=== PATIENT | male | born 1945 | race Caucasian/White ===

== ENCOUNTER → 2020-03-26 | Outpatient (CLI) | payer MEDICARE, BC ==
[2020-03-26 13:17] LABS: Urine Creatinine 110.1 mg/dL
[2020-03-26 14:30] LABS: Hemoglobin A1C 8.2 % (4.0-6.0)
[2020-03-26 16:10] LABS: African American GFR (CKD) 75.2 (60.0-200.0); Albumin 4.3 g/dL (3.80-4.90); Albumin/Globulin Ratio 1.79 (1.60-3.17); BUN/Creat Ratio 19.09 Ratio (12.00-20.00); Calcium 9.2 mg/dL (8.7-10.3); Chol/HDL Ratio 3.79; Globulin 2.4 g/dL (1.6-3.3); Non-African American GFR(CKD) 64.9 (60.0-200.0); Potassium 4.9 mmol/L (3.5-5.5); Total Bilirubin 0.5 mg/dL (0.2-1.2); Total Protein 6.7 g/dL (6.2-8.2)
== END | disposition home or self-care (01) ==
LOC: LABWHC1 07:17
PROVIDERS: ATTEND Internal Medicine Endocrinology, Diabetes & Metabolism
DX: E11.65 Type 2 diabetes mellitus with hyperglycemia (principal)
CPT/HCPCS: 36415; 80053; 80061; 82043; 82570; 83036; 84443

== ENCOUNTER 2020-09-15 06:36 | Day surgery (SDC) | payer MEDICARE, BC ==
[2020-09-07 16:32] VITALS: BMI 27.9
[~2020-09-15 06:36] MED LIST: LACTATED RINGERS 1,000 ML IV SCH
[2020-09-15] MEDS ORDERED: LACTATED RINGERS 1,000 ML IV ONE (07:10)
[2020-09-15 07:19] LABS: Glucose,Whole Blood 139 mg/dL (75-99)
[2020-09-15 07:26] VITALS: TEMP 96
[2020-09-15] MEDS ORDERED: PROPOFOL 10 MG/ML 20 ML VIAL IV ONE (07:57)
--- NOTE | 2020-09-15 07:59 | P.GSHP ---
History of Present Illness H&P Date: 09/15/20 CHIEF COMPLAINT: Colon screen HISTORY OF PRESENT ILLNESS: The patient is a 74-year-old male who presents for colon screen. Lower endoscopy was offered for further evaluation and management. PAST MEDICAL HISTORY: Please see list. PAST SURGICAL HISTORY: Please see list. MEDICATIONS: Please see list. ALLERGIES: Please see list. SOCIAL HISTORY: No illicit drug use FAMILY HISTORY: No reports of Crohn disease or ulcerative colitis. REVIEW OF ORGAN SYSTEMS: CONSTITUTIONAL: No reports of fevers or chills. PHYSICAL EXAM: VITAL SIGNS: Stable GENERAL: Well-developed pleasant in no acute distress. HEENT: No scleral icterus. Extraocular movements grossly intact. Moist buccal mucosa. NECK: Supple without lymphadenopathy. CHEST: Unlabored respirations. Equal bilateral excursions. CARDIOVASCULAR: Regular rate and rhythm. Distal 2+ pulses. ABDOMEN: Soft, nontender, nondistended. MUSCULOSKELETAL: No clubbing, cyanosis, or edema. ASSESSMENT: 1. Colon screen. PLAN: 1. Recommend proceeding with a lower endoscopy Past Medical History Past Medical History: Cancer, Diabetes Mellitus, Hypertension, Thyroid Disorder Additional Past Medical History / Comment(s): hx colon cancer, Hx polyps History of Any Multi-Drug Resistant Organisms: None Reported Past Surgical History: Bowel Resection, Orthopedic Surgery Additional Past Surgical History / Comment(s): several colonoscopies, hemorrhoidectomy. ORIF bilsarai ankles 1986 Past Anesthesia/Blood Transfusion Reactions: Motion Sickness Smoking Status: Former smoker - Past Family History Father Family Medical History: Myocardial Infarction ([place]) Additional Family Medical History / Comment(s): AT AGE 44 FROM [place] Mother Family Medical History: No Reported History Medications and Allergies Home Medications Medication Instructions Recorded Confirmed Type Atorvastatin [Lipitor] 80 mg PO DAILY 08/26/14 09/15/20 History Levothyroxine Sodium [Synthroid] 100 mcg PO DAILY 08/26/14 09/15/20 History Ramipril 2.5 mg PO DAILY 08/26/14 09/15/20 History metFORMIN HCL [Glucophage] 850 mg PO BID 08/26/14 09/15/20 History Cholecalciferol [Vitamin D3 (25 2,000 unit PO DAILY 09/07/20 09/15/20 History Mcg = 1000 Iu)] Glucos Sul 2Kcl/MSM/Chond/C/Mn 1 each PO DAILY 09/07/20 09/15/20 History [Glucosamine Chondroitin Cap] Naproxen Sodium [Aleve] 220 - 440 mg PO Q12HR PRN 09/07/20 09/15/20 History sitaGLIPtin PHOSPHATE [Januvia] 100 mg PO DAILY 09/07/20 09/15/20 History Allergies Allergy/AdvReac Type Severity Reaction Status Date / Time No Known Allergies Allergy Verified 09/15/20 07:28 Surgical - Exam Vital Signs Temp Pulse BP Pulse Ox 96.0 F L 100 158/74 96 09/15/20 07:05 09/15/20 07:05 09/15/20 07:05 09/15/20 07:05 Results - Labs Abnormal Lab Results - Last 24 Hours (Table) 09/15/20 Range/Units 07:15 POC Glucose (mg/dL) 139 H (75-99) mg/dL
--- NOTE | 2020-09-15 08:27 | P.PCN ---
Date of Procedure: 09/15/20 Description of Procedure: PREOPERATIVE DIAGNOSIS: Personal history of malignant colon polyps POSTOPERATIVE DIAGNOSIS: Sigmoid colon polyp Severe pandiverticulosis Sigmoid partial colectomy Sigmoid diverticulosis Internal hemorrhoids, grade 2 OPERATION: Colonoscopy to the ileocecal valve and appendiceal orifice, cecum Colonoscopy with cold forceps biopsies SURGEON: Mahi Hope MD. ANESTHESIA: MAC. INDICATIONS: The patient is an 74-year-old male who presents personal history of colon poly ps. Last colonoscopy 3 years. Benefits and risks were described and informed consent was obtained. DESCRIPTION OF PROCEDURE: The patient had undergone Suprep. He had been brought into the operating room and laid in the left lateral decubitus position. After adequate intravenous sedation, the rectum was examined with 2% lidocaine jelly. The prostate was unremarkable. No external hemorrhoids were encountered. The rectal tone was within normal limits. No lesions were palpated in the rectal vault. An Olympus colonoscope was advanced until the cecum, ileocecal valve and appendiceal orifice were clearly viewed. The prep was fair. Severe sigmoid diverticulosis with pandiverticulosis was encountered. Evidence of partial colectomy along the sigmoid colon was identified with mild stricture. Evidence of previous tattoo along the ascending colon, proximal portion was also identified. A 4 mm hyperplastic polyp along the sigmoid colon was removed with cold forceps. No evidence of focal colitis was found. Retroflexion of the scope demonstrated grade 2 internal hemorrhoids without active bleeding or inflammation. The colon was desufflated. The patient had tolerated the procedure well. Withdrawal time was over 6 minutes. FINDINGS: Aronchick preparation quality scale 3 (1-5) Internal hemorrhoids, grade 2 No external hemorrhoids No arteriovenous malformations. Sigmoid diverticulosis with severe pandiverticulosis Mild sigmoid anastomotic stricture Removal of 1 polyp: - Cold forceps biopsy at 15 cm from the anal verge, 4 mm polyp, sigmoid colon No focal colitis. RECOMMENDATIONS: Repeat colonoscopy 3 years, 2022. Plan - Discharge Summary Discharge Rx Participant: No New Discharge Prescriptions: Continue Levothyroxine Sodium [Synthroid] 100 mcg PO DAILY Atorvastatin [Lipitor] 80 mg PO DAILY metFORMIN HCL [Glucophage] 850 mg PO BID Ramipril 2.5 mg PO DAILY Naproxen Sodium [Aleve] 220 - 440 mg PO Q12HR PRN PRN Reason: Pain Glucos Sul 2Kcl/MSM/Chond/C/Mn [Glucosamine Chondroitin Cap] 1 each PO DAILY Cholecalciferol [Vitamin D3 (25 Mcg = 1000 Iu)] 2,000 unit PO DAILY sitaGLIPtin PHOSPHATE [Januvia] 100 mg PO DAILY Discharge Medication List Atorvastatin [Lipitor] 80 mg PO DAILY 08/26/14 [History] Levothyroxine Sodium [Synthroid] 100 mcg PO DAILY 08/26/14 [History] Ramipril 2.5 mg PO DAILY 08/26/14 [History] metFORMIN HCL [Glucophage] 850 mg PO BID 08/26/14 [History] Cholecalciferol [Vitamin D3 (25 Mcg = 1000 Iu)] 2,000 unit PO DAILY 09/07/20 [History] Glucos Sul 2Kcl/MSM/Chond/C/Mn [Glucosamine Chondroitin Cap] 1 each PO DAILY 09/07/20 [History] Naproxen Sodium [Aleve] 220 - 440 mg PO Q12HR PRN 09/07/20 [History] sitaGLIPtin PHOSPHATE [Januvia] 100 mg PO DAILY 09/07/20 [History] Follow up Appointment(s)/Referral(s): Mahi Hope MD [STAFF PHYSICIAN] - As Needed Patient Instructions/Handouts: Diverticulosis Diet (GEN), Diverticulosis (DC), Colorectal Polyps (DC) Activity/Diet/Wound Care/Special Instructions: Repeat colonoscopy 3 years, 2022 Discharge Disposition: HOME SELF-CARE
[2020-09-15 08:43] VITALS: BP 143/83; PULSE 58; RESP 16
== END 2020-09-15 08:54 | disposition home or self-care (01) ==
LOC: ORWHC2ENDO 06:36
PROVIDERS: ATTEND Surgery Plastic and Reconstructive Surgery
DX: Z12.11 Encounter for screening for malignant neoplasm of colon (principal); K63.5 Polyp of colon; K57.30 Diverticulosis of large intestine without perforation or abscess without bleeding; Z85.038 Personal history of other malignant neoplasm of large intestine; Z86.010 Personal history of colon polyps; K64.1 Second degree hemorrhoids; I10 Essential (primary) hypertension; E11.9 Type 2 diabetes mellitus without complications; E07.9 Disorder of thyroid, unspecified; Z79.84 Long term (current) use of oral hypoglycemic drugs; Z79.890 Hormone replacement therapy; Z79.899 Other long term (current) drug therapy; Z90.49 Acquired absence of other specified parts of digestive tract; Z98.890 Other specified postprocedural states; Z87.891 Personal history of nicotine dependence; Z82.49 Family history of ischemic heart disease and other diseases of the circulatory system
CPT/HCPCS: 88305; 45380; J2704

== ENCOUNTER → 2020-10-20 | Outpatient (CLI) | payer MEDICARE, BC ==
[2020-10-20 16:45] LABS: Albumin 4.5 g/dL (3.80-4.90); Albumin/Globulin Ratio 1.96 (1.60-3.17); Anion Gap 9.1 mmol/L (4.00-12.00); BUN/Creat Ratio 14.62 Ratio (12.00-20.00); Calcium 9.4 mg/dL (8.7-10.3); Carbon Dioxide 28.9 mmol/L (21.6-31.8); Chol/HDL Ratio 3.73; Globulin 2.3 g/dL (1.6-3.3); LDL Cholesterol,Calculated 56.4 mg/dL (0.0-131.0); Non-African American GFR(CKD) 52.6 (60.0-200.0); Potassium 4.3 mmol/L (3.5-5.5); Total Bilirubin 0.6 mg/dL (0.2-1.2); Total Protein 6.8 g/dL (6.2-8.2); VLDL Calculation 33.6 mg/dL (5.00-40.00)
[2020-10-20 19:13] LABS: Microalbumin Creatinine Ratio <30 mg/g Creat (0-30); Urine Creatinine 117.7 mg/dL
== END | disposition home or self-care (01) ==
LOC: LABWHC1 08:14
PROVIDERS: ATTEND Internal Medicine Endocrinology, Diabetes & Metabolism
DX: E11.65 Type 2 diabetes mellitus with hyperglycemia (principal)
CPT/HCPCS: 36415; 80053; 80061; 82043; 82570; 83036; 84443

== ENCOUNTER → 2022-03-01 | Outpatient (CLI) | payer MEDICARE, BC ==
[2022-03-01 10:53] LABS: ALT 26 U/L (10-49); AST 18 U/L (14-35); Albumin 4.5 g/dL (3.8-4.9); Alkaline Phosphatase 84 U/L (41-126); BUN/Creat Ratio 13.33 Ratio (12.00-20.00); Blood Urea Nitrogen 15.2 mg/dL (9.0-27.0); Calcium 9.7 mg/dL (8.7-10.3); Carbon Dioxide 24.9 mmol/L (20.0-27.5); Chloride 103 mmol/L (96-109); Chol/HDL Ratio 3.82 Ratio; Globulin 2.6 g/dL (1.6-3.3); Glucose 164 mg/dL (70-110); LDL Cholesterol,Calculated 59.1 mg/dL (0.0-131.0); Non-African American GFR(CKD) 61.3 (60.0-200.0); Potassium 5.2 mmol/L (3.5-5.5); Sodium 140 mmol/L (135-145); Total Protein 7.1 g/dL (6.2-8.2)
[2022-03-01 17:54] LABS: Microalbumin Creatinine Ratio <30 mg/g Creat (0-30)
== END | disposition home or self-care (01) ==
LOC: LABWHC1 07:19
PROVIDERS: ATTEND Internal Medicine Endocrinology, Diabetes & Metabolism
DX: E11.65 Type 2 diabetes mellitus with hyperglycemia (principal)
CPT/HCPCS: 36415; 80053; 80061; 82043; 82570; 83036; 84443

== ENCOUNTER → 2022-06-28 | Outpatient (CLI) | payer MEDICARE, BC ==
[2022-06-28 10:55] LABS: ALT 23 U/L (10-49); AST 21 U/L (14-35); African American GFR (CKD) 60.6 (60.0-200.0); Albumin 4.5 g/dL (3.8-4.9); Albumin/Globulin Ratio 1.61 (1.60-3.17); Alkaline Phosphatase 86 U/L (41-126); BUN/Creat Ratio 14.62 Ratio (12.00-20.00); Calcium 9.1 mg/dL (8.7-10.3); Carbon Dioxide 24.1 mmol/L (20.0-27.5); Chloride 101 mmol/L (96-109); Chol/HDL Ratio 3.82 Ratio; Globulin 2.8 g/dL (1.6-3.3); Glucose 194 mg/dL (70-110); LDL Cholesterol,Calculated 49.7 mg/dL (0.0-131.0); Non-African American GFR(CKD) 52.3 (60.0-200.0); Potassium 4.6 mmol/L (3.5-5.5); Sodium 136 mmol/L (135-145); Total Protein 7.3 g/dL (6.2-8.2)
[2022-06-28 18:21] LABS: Microalbumin Creatinine Ratio <30 mg/g Creat (0-30)
== END | disposition home or self-care (01) ==
LOC: LABWHC1 07:14
PROVIDERS: ATTEND Internal Medicine Endocrinology, Diabetes & Metabolism
DX: E11.65 Type 2 diabetes mellitus with hyperglycemia (principal)
CPT/HCPCS: 36415; 80053; 80061; 82043; 82570; 83036; 84443

== ENCOUNTER → 2022-09-21 | Outpatient (CLI) | payer MEDICARE, BC ==
[2022-09-21 15:16] LABS: ALT 24 U/L (10-49); AST 18 U/L (14-35); African American GFR (CKD) 78.4 (60.0-200.0); Albumin 4.3 g/dL (3.8-4.9); Albumin/Globulin Ratio 1.63 (1.60-3.17); Alkaline Phosphatase 79 U/L (41-126); BUN/Creat Ratio 13.33 Ratio (12.00-20.00); Calcium 9.4 mg/dL (8.7-10.3); Carbon Dioxide 25.9 mmol/L (20.0-27.5); Chloride 102 mmol/L (96-109); Chol/HDL Ratio 3.28 Ratio; Globulin 2.7 g/dL (1.6-3.3); Glucose 118 mg/dL (70-110); LDL Cholesterol,Calculated 36.3 mg/dL (0.0-131.0); Non-African American GFR(CKD) 67.7 (60.0-200.0); Potassium 4.5 mmol/L (3.5-5.5); Sodium 139 mmol/L (135-145)
[2022-09-21 20:25] LABS: Microalbumin Creatinine Ratio <30 mg/g Creat (0-30)
== END | disposition home or self-care (01) ==
LOC: LABWHC1 08:13
PROVIDERS: ATTEND Internal Medicine Endocrinology, Diabetes & Metabolism
DX: E11.65 Type 2 diabetes mellitus with hyperglycemia (principal)
CPT/HCPCS: 36415; 80053; 80061; 82043; 82570; 83036; 84443

== ENCOUNTER → 2023-01-01 | Outpatient (CLI) | payer MEDICARE, BC ==
[2023-01-01 15:04] LABS: ALT 28 U/L (10-49); AST 20 U/L (14-35); African American GFR (CKD) 77.9 (60.0-200.0); Albumin 4.6 g/dL (3.8-4.9); Albumin/Globulin Ratio 1.84 (1.60-3.17); Alkaline Phosphatase 77 U/L (41-126); BUN/Creat Ratio 13.81 Ratio (12.00-20.00); Blood Urea Nitrogen 14.5 mg/dL (9.0-27.0); Calcium 9.5 mg/dL (8.7-10.3); Carbon Dioxide 28.6 mmol/L (20.0-27.5); Chloride 104 mmol/L (96-109); Chol/HDL Ratio 3.03 Ratio; Globulin 2.5 g/dL (1.6-3.3); Glucose 112 mg/dL (70-110); LDL Cholesterol,Calculated 52.6 mg/dL (0.0-131.0); Non-African American GFR(CKD) 67.2 (60.0-200.0); Potassium 4.3 mmol/L (3.5-5.5); Sodium 142 mmol/L (135-145); Total Protein 7.1 g/dL (6.2-8.2)
[2023-01-01 19:34] LABS: Microalbumin Creatinine Ratio <30 mg/g Creat (0-30)
== END | disposition home or self-care (01) ==
LOC: LABWHC1 06:38
PROVIDERS: ATTEND Internal Medicine Endocrinology, Diabetes & Metabolism
DX: E11.65 Type 2 diabetes mellitus with hyperglycemia (principal)
CPT/HCPCS: 36415; 80053; 80061; 82043; 82570; 83036; 84443

== ENCOUNTER → 2023-04-19 | Outpatient (CLI) | payer MEDICARE, BC ==
[2023-04-19 11:48] LABS: ALT 27 U/L (10-49); AST 19 U/L (14-35); Albumin 4.6 d/dL (3.8-4.9); Albumin/Globulin Ratio 1.77 Ratio (1.60-3.17); Alkaline Phosphatase 78 U/L (41-126); BUN/Creat Ratio 17.82 Ratio (12.00-20.00); Blood Urea Nitrogen 19.6 mg/dL (9.0-27.0); Calcium 9.9 mg/dL (8.7-10.3); Carbon Dioxide 25.6 mmol/L (21.6-31.8); Chloride 105 mmol/L (96-109); Chol/HDL Ratio 3.06 Ratio; Globulin 2.6 d/dL (1.6-3.3); Glucose 126 mg/dL (70-110); LDL Cholesterol,Calculated 57.3 mg/dL (0.0-131.0); Potassium 4.4 mmol/L (3.5-5.5); Sodium 143 mmol/L (135-145); Total Bilirubin 0.5 mg/dL (0.3-1.2); Total Protein 7.2 d/dL (6.2-8.2); VLDL Calculation 18.12 mg/dL (5.00-40.00)
[2023-04-19 13:47] LABS: Microalbumin Creatinine Ratio <7 mg/g Cr (0-30)
== END | disposition home or self-care (01) ==
LOC: LABWHC1 06:46
PROVIDERS: ATTEND Internal Medicine Endocrinology, Diabetes & Metabolism
DX: E11.65 Type 2 diabetes mellitus with hyperglycemia (principal)
CPT/HCPCS: 36415; 80053; 80061; 82043; 82570; 83036; 84443

== ENCOUNTER → 2023-10-23 | Outpatient (CLI) | payer MEDICARE ==
[2023-10-23 11:19] LABS: ALT 27 U/L (10-49); AST 18 U/L (14-35); Albumin 4.4 g/dL (3.8-4.9); Albumin/Globulin Ratio 1.69 Ratio (1.60-3.17); Alkaline Phosphatase 78 U/L (41-126); Blood Urea Nitrogen 17.6 mg/dL (9.0-27.0); Calcium 9.5 mg/dL (8.7-10.3); Carbon Dioxide 23.5 mmol/L (21.6-31.8); Chloride 104 mmol/L (96-109); Chol/HDL Ratio 3.22 Ratio; Globulin 2.6 g/dL (1.6-3.3); Glucose 148 mg/dL (70-110); LDL Cholesterol,Calculated 68.1 mg/dL (0.0-131.0); Potassium 4.1 mmol/L (3.5-5.5); Sodium 140 mmol/L (135-145); Total Bilirubin 0.4 mg/dL (0.3-1.2)
== END | disposition home or self-care (01) ==
LOC: LABWHC1 06:56
PROVIDERS: ATTEND Internal Medicine Endocrinology, Diabetes & Metabolism
DX: E11.65 Type 2 diabetes mellitus with hyperglycemia (principal)
CPT/HCPCS: 36415; 80053; 80061; 82043; 82570; 83036; 84443

== ENCOUNTER → 2024-06-23 | Outpatient (CLI) | payer MEDICARE ==
[2024-06-23 11:04] LABS: Microalbumin Creatinine Ratio <8 mg/g Cr (0-30)
[2024-06-23 11:14] LABS: Albumin 4.3 g/dL (3.8-4.9); BUN/Creat Ratio 12.25 Ratio (12.00-20.00); Blood Urea Nitrogen 14.7 mg/dL (9.0-27.0); Calcium 8.8 mg/dL (8.7-10.3); Carbon Dioxide 24.3 mmol/L (21.6-31.8); Chloride 105 mmol/L (96-109); Chol/HDL Ratio 2.92 Ratio; Globulin 2.3 g/dL (1.6-3.3); Glucose 158 mg/dL (70-110); LDL Cholesterol,Calculated 39.1 mg/dL (0.0-131.0); Potassium 4.5 mmol/L (3.5-5.5); Sodium 139 mmol/L (135-145); Total Protein 6.6 g/dL (6.2-8.2)
[2024-06-23 11:15] LABS: ALT 23 U/L (10-49); AST 20 U/L (14-35); Albumin/Globulin Ratio 1.87 Ratio (1.60-3.17); Alkaline Phosphatase 91 U/L (41-126); Total Bilirubin 0.4 mg/dL (0.3-1.2)
== END | disposition home or self-care (01) ==
LOC: LABWHC1 06:54
PROVIDERS: ATTEND Internal Medicine Endocrinology, Diabetes & Metabolism
DX: E11.65 Type 2 diabetes mellitus with hyperglycemia (principal)
CPT/HCPCS: 36415; 80053; 80061; 82043; 82570; 83036; 84443

== ENCOUNTER → 2025-04-13 | Outpatient (CLI) | payer MEDICARE ==
[2025-04-13 10:37] LABS: Microalbumin Creatinine Ratio <5 mg/g Cr (0-30)
[2025-04-13 10:44] LABS: ALT 22 U/L (10-49); AST 19 U/L (14-35); Albumin 4.2 g/dL (3.8-4.9); Albumin/Globulin Ratio 1.56 Ratio (1.60-3.17); Alkaline Phosphatase 91 U/L (41-126); BUN/Creat Ratio 18.82 Ratio (12.00-20.00); Blood Urea Nitrogen 20.7 mg/dL (9.0-27.0); Calcium 9.2 mg/dL (8.7-10.3); Carbon Dioxide 23.5 mmol/L (21.6-31.8); Chloride 103 mmol/L (96-109); Globulin 2.7 g/dL (1.6-3.3); Glucose 135 mg/dL (70-110); LDL Cholesterol,Calculated 44.5 mg/dL (0.0-131.0); Potassium 4.6 mmol/L (3.5-5.5); Sodium 137 mmol/L (135-145); Total Bilirubin 0.5 mg/dL (0.3-1.2); Total Protein 6.9 g/dL (6.2-8.2)
== END | disposition home or self-care (01) ==
LOC: LABWHC1 06:52
PROVIDERS: ATTEND Internal Medicine Endocrinology, Diabetes & Metabolism
DX: E11.65 Type 2 diabetes mellitus with hyperglycemia (principal)
CPT/HCPCS: 36415; 80053; 80061; 82043; 82570; 83036; 84443